=== PATIENT | female | born 1950 | race Caucasian/White ===

== ENCOUNTER 2017-09-18 13:47 | Emergency (ER) | payer SELFPAY ==
--- NOTE | 2017-09-18 14:53 | C.PDOC ---
History Of Present Illness 66-year-old female, presents to the emergency department with multiple complaints. Patient states she has had bumps on her head for several years that are "getting more annoying" and she wants to get them "checked out." Patient also notes blurred vision over the past several years and describes it as "cloudy." Patients third complaint are hiccups. States when she eats too fast sometimes, she feels like the food gets stuck and she experiences hiccups. Time Seen by Provider: 09/18/17 13:56 Chief Complaint (Nursing): Abnormal Skin Integrity History Per: Patient History/Exam Limitations: no limitations Past Medical History Reviewed: Historical Data, Nursing Documentation, Vital Signs Vital Signs: Last Vital Signs Temp 98.2 F 09/18/17 15:30 Pulse 69 09/18/17 15:30 Resp 16 09/18/17 15:30 BP 160/87 H 09/18/17 15:30 Pulse Ox 99 09/18/17 20:22 Family History: States: No Known Family Hx - Social History Hx Alcohol Use: No Hx Substance Use: No - Immunization History Hx Tetanus Toxoid Vaccination: No Hx Influenza Vaccination: No Hx Pneumococcal Vaccination: No Review Of Systems Constitutional: Negative for: Fever Cardiovascular: Negative for: Chest Pain Respiratory: Negative for: Cough, Shortness of Breath Gastrointestinal: Negative for: Vomiting Musculoskeletal: Negative for: Back Pain Neurological: Negative for: Weakness, Numbness, Headache, Dizziness Physical Exam - Physical Exam Appears: Non-toxic, No Acute Distress Skin: Normal Color, Warm, Dry Head: Normacephalic, Other (scattered nodules on scalp) Neck: Normal ROM Cardiovascular: Rhythm Regular, No Murmur Respiratory: Normal Breath Sounds, No Accessory Muscle Use Extremity: Normal ROM Neurological/Psych: Oriented x3, Normal Speech ED Course And Treatment O2 Sat by Pulse Oximetry: 99 Progress Note: Patient with chronic complaints. She will be discharged for outpatient f/u with PMD/clinic. Disposition - Disposition Referrals: [facility] at [facility] [Outside] Renato Fleming MD [Staff Provider] - Wesley Comer MD [Staff Provider] - Aldo Mejia MD [Staff Provider] - Disposition: HOME/ ROUTINE Disposition Time: 14:52 Condition: GOOD Additional Instructions: Follow up with the medical doctor with 1-2 days. return if worsened. Prescriptions: Famotidine [Pepcid] 20 mg PO BID #20 tab Instructions: Hiccups, Cataracts Forms: [employer] (Czech) - Clinical Impression Clinical Impression: Hiccups, Cataract, Sebaceous cyst - Scribe Statement The provider has reviewed the documentation as recorded by the Scribe (Jenny Starks) All medical record entries made by the Scribe were at my direction and personally dictated by me. I have reviewed the chart and agree that the record accurately reflects my personal performance of the history, physical exam, medical decision making, and the department course for this patient. I have also personally directed, reviewed, and agree with the discharge instructions and disposition.
[2017-09-18 15:30] VITALS: BP 160/87; PULSE 69; RESP 16; TEMP 98.2
[2017-09-18 20:21] VITALS: O2SAT 99
== END 2017-09-18 15:18 | disposition home or self-care (01) ==
LOC: C.ER 13:47
DX: L72.3 Sebaceous cyst (principal); H26.9 Unspecified cataract; R06.6 Hiccough